=== PATIENT | female | born 1990 | race Caucasian/White ===

== ENCOUNTER 2018-11-05 12:56 | Inpatient (IN) | payer OTHER ==
[~2018-11-05] VITALS: Ht 160 cm; Wt 59.0 kg
[2018-11-05 12:56] VITALS: BP 125/73
[2018-11-05] MEDS ORDERED: ONDANSETRON 4 MG/2 ML VIAL IVP ONE ×2 (13:25→14:05)
[2018-11-05] MEDS ORDERED: MORPHINE SULFATE 4 MG/ML SYR IVP ONE ×2 (13:25→14:05)
[2018-11-05] MEDS ORDERED: NACL 0.9% 1,000 ML IV ONE (14:05)
[2018-11-05 14:08] LABS: BASOPHILS % (AUTO) 0.1 % (0.0-2.0); EOSINOPHILS # (AUTO) 0.1 K/uL (0-0.4); EOSINOPHILS % (AUTO) 0.4 % (0.0-4.0); HEMATOCRIT 38.1 % (36-48); HEMOGLOBIN 12.5 g/dL (12.0-16.0); LYMPHOCYTES # (AUTO) 1.1 K/uL (2.5-16.5); LYMPHOCYTES % (AUTO) 7.7 % (20.5-51.1); MEAN CORPUSCULAR HEMOGLOBIN 28 pg (27-31); MEAN CORPUSCULAR HGB CONC 33 g/dL (33-37); MEAN CORPUSCULAR VOLUME 85.7 fL (80-94); MONOCYTES # (AUTO) 0.7 K/uL (0.8-1.0); MONOCYTES % (AUTO) 4.6 % (1.7-9.3); NEUTROPHILS # (AUTO) 12.8 K/uL (1.8-7.7); NEUTROPHILS % (AUTO) 87.2 % (42.2-75.2); PLATELET COUNT (AUTO) 310 K/uL (140-450); RED BLOOD CELL COUNT(AUTO) 4.45 MIL/uL (4.20-5.40); RED CELL DISTRIBUTION WIDTH 13.3 % (11.6-13.7); WHITE BLOOD COUNT (AUTO) 14.7 K/uL (4.8-10.8)
[2018-11-05 14:09] LABS: APPEARANCE,URINE HAZY (CLEAR); BILIRUBIN,URINE 1+ (NEGATIVE); BLOOD, URINE NEGATIVE (NEGATIVE); COLOR,URINE YELLOW (YELLOW); LEUKOCYTE ESTERASE ,URINE NEGATIVE (NEGATIVE); NITRITE, URINE NEGATIVE (NEGATIVE); PH,URINE 6.5 (5.0-9.0); UGLUCOSE NEGATIVE (NEGATIVE)
[2018-11-05] MEDS ORDERED: PIPERACILLIN/TAZOBACTAM 3.375 GM in DEXTROSE 5% 50 ML IV ONE (14:15)
[2018-11-05 14:18] LABS: CARBON DIOXIDE 26.5 mmol/L (21-32); CREATININE 0.7 mg/dL (0.6-1.3); POTASSIUM 3.5 mmol/L (3.5-5.1)
[2018-11-05 14:24] LABS: ALBUMIN 3.7 g/dL (3.4-5.0); TOTAL BILIRUBIN 0.4 mg/dL (0.0-1.0)
[2018-11-05] MEDS ORDERED: PIPERACILLIN/TAZOBACTAM 3.375 GM VIAL IV ONE (14:26)
[2018-11-05] MEDS: ONDANSETRON 4 MG/2 ML VIAL IVP PRN (17:32)
[2018-11-05] MEDS: MORPHINE SULFATE 2 MG/ML SYR IVP PRN (17:34)
[2018-11-05] MEDS ORDERED: BUPIVACAINE-MPF/EPI 0.5% 30 ML VIAL INJ ONE (19:56)
[2018-11-05] MEDS ORDERED: ONDANSETRON 4 MG/2 ML VIAL IVP PRN ×2 (20:05→21:00)
[2018-11-05] MEDS ORDERED: fentaNYL 0.05 MG/ML VIAL ONE (20:08)
[2018-11-05] MEDS ORDERED: HYDROmorphone PFS 2 MG/ML SYR ONE ×2 (20:08→21:22)
[2018-11-05] MEDS ORDERED: DESFLURANE 240 ML BTL INH ONE (20:20)
[2018-11-05] MEDS ORDERED: SUCCINYLCHOLINE CHLORIDE 200 MG/10 ML VIAL IV ONE (20:20)
[2018-11-05] MEDS ORDERED: KETOROLAC 30 MG/ML VIAL IVP ONE (20:20)
[2018-11-05] MEDS ORDERED: ROCURONIUM 50 MG/5 ML VIAL IV ONE (20:20)
[2018-11-05] MEDS ORDERED: DEXAMETHASONE 4 MG/ML VIAL IVP ONE (20:20)
[2018-11-05] MEDS ORDERED: PROPOFOL 200 MG/20 ML VIAL IV ONE (20:20)
[2018-11-05] MEDS ORDERED: ACETAMINOPHEN EXTRA STRENGTH 500 MG TAB PO PRN (21:00)
[2018-11-05] MEDS: HYDROmorphone 1 MG/ML AMP IVP PRN ×4 (21:20→21:50)
[2018-11-05] MEDS ORDERED: ONDANSETRON 4 MG/2 ML VIAL ONE (21:35)
[2018-11-05] MEDS: MORPHINE SULFATE 4 MG/ML SYR IVP PRN (22:11)
[2018-11-05] MEDS ORDERED: methylPREDNISolone SS 125 MG/2 ML VIAL IVP PRN (22:30)
[2018-11-05] MEDS: PIPERACILLIN/TAZOBACTAM 3.375 GM in DEXTROSE 5% 50 ML IV SCH (22:30)
[2018-11-06] VITALS: BP 109/60
[2018-11-06] MEDS: PIPERACILLIN/TAZOBACTAM 3.375 GM in DEXTROSE 5% 50 ML IV SCH ×3 (02:28→14:10)
[2018-11-06] MEDS: MORPHINE SULFATE 4 MG/ML SYR IVP PRN ×2 (04:21→10:48)
[2018-11-06] MEDS: ACETAMINOPHEN/CODEINE 300/30MG 1 TAB PO PRN ×2 (06:06→17:07)
[2018-11-06] MEDS: MORPHINE SULFATE 2 MG/ML SYR IVP PRN ×2 (07:50→14:11)
[2018-11-06 08:00] VITALS: BP 113/62
[2018-11-06] MEDS ORDERED: METHADONE 10 MG TAB PO SCH (10:30)
[2018-11-06] MEDS: ONDANSETRON 4 MG/2 ML VIAL IVP PRN (10:48)
[2018-11-06 15:51] VITALS: BP 102/62
[2018-11-06 16:00] VITALS: BP 102/62
== END 2018-11-06 17:45 | disposition home or self-care (01) | DRG 234 ==
LOC: MED 12:56 → MTU 14:47
PROVIDERS: ADMIT Internal Medicine; ATTEND Internal Medicine
PROC: 0DTJ4ZZ Resection of Appendix, Percutaneous Endoscopic Approach (ICD-10-PCS; principal; 2018-11-05 19:00)
DX: K35.80 Unspecified acute appendicitis (principal); F11.20 Opioid dependence, uncomplicated; Z90.49 Acquired absence of other specified parts of digestive tract; R91.1 Solitary pulmonary nodule
CPT/HCPCS: 36415; 80053; 81003; 83605; 83690; 84702; 85025; 87040; 87070; 87075; 87081; 87186; 87205; 88304; 96365; 96375; 96376; 99285; J0330; J1100; J1170; J1885; J2270; J2405; J2543; J2704; J2930; J3010; J3490; J7060